=== PATIENT | female | born 1960 | race Caucasian/White ===

== ENCOUNTER 2017-07-08 11:39 | Outpatient (CLI) | payer OTHER | END 2017-07-08 11:50 | disposition home or self-care (01) | LOC: MAMO-SONO 11:39 | DX: Z12.31 Encounter for screening mammogram for malignant neoplasm of breast (principal); N60.11 Diffuse cystic mastopathy of right breast ==

== ENCOUNTER 2018-06-12 15:17 | Emergency (ER) | payer OTHER ==
[~2018-06-12] VITALS: Ht 157.5 cm; Wt 83.9 kg
[2018-06-12] MEDS ORDERED: COZAAR100 MG (15:59)
== END 2018-06-12 17:00 | disposition home or self-care (01) ==
LOC: ER 15:17
DX: S89.82XA Other specified injuries of left lower leg, initial encounter (principal); W01.0XXA Fall on same level from slipping, tripping and stumbling without subsequent striking against object, initial encounter; M12.562 Traumatic arthropathy, left knee; Y93.89 Activity, other specified; Y92.232 Corridor of hospital as the place of occurrence of the external cause; Y99.8 Other external cause status

== ENCOUNTER 2018-11-09 16:21 | Emergency (ER) | payer OTHER ==
[~2018-11-09] VITALS: Ht 157.5 cm; Wt 90.7 kg
[~2018-11-09 16:21] MED LIST: COZAAR100 MG
== END 2018-11-09 22:44 | disposition home or self-care (01) ==
LOC: ER 16:21 → CPU-OBS 16:33 → ER 16:33
DX: R07.89 Other chest pain (principal)
CPT/HCPCS: G0378; G0379; 93005

== ENCOUNTER 2022-12-08 14:41 | Outpatient (CLI) | payer OTHER | END 2022-12-08 14:53 | disposition home or self-care (01) | LOC: RAD 14:41 | PROVIDERS: ATTEND Obstetrics & Gynecology | DX: R05.8 Other specified cough (principal); R22.1 Localized swelling, mass and lump, neck ==

== ENCOUNTER 2023-02-13 13:13 | Outpatient (CLI) | payer OTHER | END 2023-02-13 13:21 | disposition home or self-care (01) | LOC: SONOGRAMA 13:13 | PROVIDERS: ATTEND Obstetrics & Gynecology | DX: E04.8 Other specified nontoxic goiter (principal) ==